=== PATIENT | male | born 1960 | race Caucasian/White ===

== ENCOUNTER 2018-04-23 18:20 | Emergency (ER) | payer BC ==
[~2018-04-23] VITALS: Ht 185.4 cm; Wt 106.8 kg
[2018-04-23 19:08] LABS: EOS # 0.1 (0.04-0.40); EOS % 1.1 % (0.0-4.0); HEMOGLOBIN 16.4 g/dL (13.5-18.0); LYMPH# 1.6 (1.50-4.00); MEAN CELL VOLUME 87 fl (78-100); MEAN CORPUSCULAR HEMOGLOBIN 30 pg (27-31); MEAN CORPUSCULAR HGB CONC 35 g/dL (33-37); MEAN PLATELET VOLUME 10.4 fl (7.4-10.4); MONO # 0.7 (0.20-0.80); NEU # 7.4 (1.40-6.50); PLATELET COUNT 187 K/mm3 (130-400); RED BLOOD COUNT 5.41 M/mm3 (4.20-5.60); RED CELL DISTRIBUTION WIDTH 13.4 % (11.5-14.5); WHITE BLOOD COUNT 9.9 K/mm3 (4.8-10.8)
[2018-04-23] MEDS ORDERED: BYSTOLIC10 MG PO (19:11)
[2018-04-23] MEDS ORDERED: FLECAINIDE ACE100 MG PO (19:11)
[2018-04-23] MEDS ORDERED: LEXAPRO 10MG10 MG PO (19:11)
[2018-04-23] MEDS ORDERED: COZAAR100 MG PO (19:11)
[2018-04-23] MEDS ORDERED: MITIGARE0.6 MG PO (19:11)
[2018-04-23] MEDS ORDERED: LIPITOR 40MG TA40 MG PO (19:11)
[2018-04-23] MEDS ORDERED: ZYLOPRIM100 MG PO (19:12)
[2018-04-23] MEDS ORDERED: ADULT ASPIRIN81 MG PO (19:12)
[2018-04-23] MEDS ORDERED: CYCLOBENZAPRINE10 M1 PO (19:12)
[2018-04-23 19:21] LABS: ALBUMIN 4.9 g/dL (3.5-5.0); CALCIUM 10.3 mg/dL (8.4-10.2); POTASSIUM 4.9 mmol/L (3.6-5.0); TOTAL BILIRUBIN 1.3 mg/dL (0.2-1.3); TOTAL PROTEIN 7.5 g/dL (6.3-8.2)
[2018-04-23 19:47] VITALS: BP 109/68
== END 2018-04-23 19:47 | disposition home or self-care (01) ==
LOC: ED 18:20
PROVIDERS: Family Medicine
DX: R79.9 Abnormal finding of blood chemistry, unspecified (principal); R73.9 Hyperglycemia, unspecified; I48.91 Unspecified atrial fibrillation; Z86.711 Personal history of pulmonary embolism; Z86.718 Personal history of other venous thrombosis and embolism; Z79.899 Other long term (current) drug therapy; Z79.82 Long term (current) use of aspirin; E78.5 Hyperlipidemia, unspecified; M10.9 Gout, unspecified

== ENCOUNTER → 2021-08-04 | Day surgery (SDC) | payer BC ==
[~2021-08-04] MED LIST: ADULT ASPIRIN81 MG PO; BYSTOLIC10 MG PO; COZAAR100 MG PO; CYCLOBENZAPRINE10 M1 PO; FLECAINIDE ACE100 MG PO; LEXAPRO 10MG10 MG PO; LIPITOR 40MG TA40 MG PO; MITIGARE0.6 MG PO; ZYLOPRIM100 MG PO
== END | disposition home or self-care (01) ==
LOC: MSO 07:15
DX: Z12.11 Encounter for screening for malignant neoplasm of colon (principal); K57.30 Diverticulosis of large intestine without perforation or abscess without bleeding; I10 Essential (primary) hypertension; I48.91 Unspecified atrial fibrillation; G47.33 Obstructive sleep apnea (adult) (pediatric); Z99.89 Dependence on other enabling machines and devices; Z79.899 Other long term (current) drug therapy; Z87.891 Personal history of nicotine dependence; Z86.010 Personal history of colon polyps
CPT/HCPCS: 00812; J2704; J7120

== ENCOUNTER → 2023-07-23 | Outpatient (CLI) | payer BC | LOC: RAD 09:09 | DX: R10.32 Left lower quadrant pain (principal) | CPT/HCPCS: Q9967 ==